=== PATIENT | female | born 1935 | race Caucasian/White ===

== ENCOUNTER 2018-01-09 23:53 | Emergency (ER) | payer MEDICARE ==
[2018-01-10] MEDS ORDERED: Labetalol IV* 5 MG/ML 20 ML VIAL IV PUSH ONE (00:39)
--- NOTE | 2018-01-10 00:59 | ED ---
Complex/Multi-Sys Presentation - HPI Summary HPI Summary: This is Michele Causey documenting for Dmitriy Og MD. This patient is a 68 year old F with a PMHx of HTN and DVT BIBA to [facility] with a chief complaint of blurry vision, subjective fever, redness of the face, and palpitations today 0:00 on 01/10/2018. Her symptoms woke her up from sleep, lasted a few seconds, and then resolved. Patient denies ROY, pain, numbness or tingling in arms or legs. The patient called life alert because she lives by herself and was worried about her condition. En route and in the ED room, the patients BP was high. She takes meds for her HTN and Coumadin for DVT. She last took her meds at 20:30 today. - History Of Current Complaint Chief Complaint: EDHypertension Time Seen by Provider: 01/10/18 00:28 Hx Obtained From: Patient Onset/Duration: Sudden Onset, Lasting Minutes - Woke her up form her sleepand lasted a few seconds, then resolved, Resolved Timing: Seconds - Symptoms woke her up from her sleep, lasted a few seconds, then resolved Severity Currently: None Associated Signs And Symptoms: Positive: Palpitations, Fever - subjective fever , Other - blurry vision; denies pain, denies numbness or tingling in arms or legs. Negative: Headache - Allergies/Home Medications Allergies/Adverse Reactions: Allergies Allergy/AdvReac Type Severity Reaction Status Date / Time MS Azithromycin Allergy Rash And Verified 08/23/14 12:36 [Azithromycin] Itching MS Cefaclor [From Ceclor] Allergy Rash And Verified 08/23/14 12:36 Itching MS Ciprofloxacin [From Cipro] Allergy Rash And Verified 08/23/14 12:36 Itching MS Levofloxacin Allergy Rash And Verified 08/23/14 12:36 [From Levaquin] Itching MS Nystatin [Nystatin] Allergy Rash And Verified 08/23/14 12:36 Itching MS Penicillins [PCN] Allergy Hives Verified 08/23/14 12:36 SURGA GEL Allergy Rash And Uncoded 08/23/14 12:36 Itching PMH/Surg Hx/FS Hx/Imm Hx Endocrine/Hematology History: Reports: Hx Anticoagulant Therapy Cardiovascular History: Reports: Hx Hypertension, Other Cardiovascular Problems/ Disorders - Occasional palpitations Denies: Hx Pacemaker/ICD GI History: Reports: Hx Diverticulosis, Hx Hiatal Hernia, Other GI Disorders - 2 abdominal surgeries in one day - partial colectomy History: Reports: Other Problems/Disorders - bladder infection, enlargement of urethra Musculoskeletal History: Reports: Hx Arthritis, Hx Back Problems, Hx Orthopedic Injury - knee injured as a teen, Hx Scoliosis Sensory History: Reports: Hx Contacts or Glasses Denies: Hx Hearing Aid Opthamlomology History: Reports: Hx Contacts or Glasses Psychiatric History: Reports: Hx Anxiety, Hx Panic Disorder - Surgical History Surgery Procedure, Year, and Place: urethra enlargement, partial colectomy, Tonsilectomy, D&C, cataract surgery Hx Anesthesia Reactions: No Infectious Disease History: No Infectious Disease History: Denies: Traveled Outside the [place] in Last 30 Days - Family History Known Family History: Positive: Cardiac Disease, Other - Cancer - Social History Alcohol Use: None Substance Use Type: Reports: None Smoking Status (MU): Never Smoked Tobacco Review of Systems Positive: Fever - subjective fever. Negative: Other - Denies pain Positive: Blurred Vision Positive: Other - Redness of the face Positive: Palpitations Negative: Other - Denies numbness or tingling in arms or legs Negative: Headache All Other Systems Reviewed And Are Negative: Yes Physical Exam - Summary Physical Exam Summary: VITAL SIGNS: Reviewed. GENERAL: Patient is a well-developed and nourished FEMALE who is lying comfortable in the stretcher. Patient is not in any acute respiratory distress. HEAD AND FACE: No signs of trauma. No ecchymosis, hematomas or skull depressions. No sinus tenderness. EYES: PERRLA, EOMI x 2, No injected conjunctiva, no nystagmus. EARS: Hearing grossly intact. Ear canals and tympanic membranes are within normal limits. MOUTH: Oropharynx within normal limits. NECK: Supple, trachea is midline, no adenopathy, no JVD, no carotid bruit, no c- spine tenderness, neck with full ROM. CHEST: Symmetric, no tenderness at palpation LUNGS: Clear to auscultation bilaterally. No wheezing or crackles. CVS: Regular rate and rhythm, S1 and S2 present, no murmurs or gallops appreciated. ABDOMEN: Soft, non-tender. No signs of distention. No rebound no guarding, and no masses palpated. Bowel sounds are normal. EXTREMITIES: FROM in all major joints, no edema, no cyanosis or clubbing. NEURO: Alert and oriented x 3. No acute neurological deficits. Speech is normal and follows commands. SKIN: Dry and warm Vital Signs On Initial Exam: Initial Vitals Temp Pulse Resp BP Pulse Ox 97.6 F 97 18 192/93 96 01/10/18 00:31 01/10/18 00:31 01/10/18 00:31 01/10/18 00:31 01/10/18 00:31 Diagnostics - Vital Signs Vital Signs Temp Pulse Resp BP Pulse Ox 01/10/18 00:31 97.6 F 97 18 192/93 96 - Laboratory Result Diagrams: 01/10/18 00:52 01/10/18 00:52 Lab Statement: Any lab studies that have been ordered have been reviewed, and results considered in the medical decision making process. - EKG 0056 Cardiac Rate: NL - 84 BPM EKG Rhythm: Sinus Rhythm EKG Interpretation: Normal axis. Normal interval. No ischemic changes Complex Multi-Symp Course/Dx Assessment/Plan: This patient is an 82 yo who has hx of HTN. She was watching TV when she felt a cadena in her head that lasted a few seconds. The patient pressed a panic button. Upon arrival to the ED, her BP was elevated. After feeling better in the ED, she was D/C home and was advised to increase her BP medication from 25 to 50. - Diagnoses Differential Diagnoses/HQI/PQRI: Other - hypertension Provider Diagnoses: Hypertension Discharge - Sign-Out/Discharge Documenting (check all that apply): Patient Departure - Discharge Plan Condition: Stable Disposition: HOME Patient Education Materials: Hypertension (ED) Referrals: Cynthia Gan MD [Primary Care Provider] - (Follow up with your primary care physician in 1-3 days.) Additional Instructions: I HIGHLY RECOMMEND THAT YOU INCREASE YOUR METOPROLOL FROM 25 TO 50 EVERY EVENING. CONTACT YOUR DOCTOR TO DISCUSS YOUR CONDITION IN 1-3 DAYS. RETURN TO THE EMERGENCY DEPARTMENT FOR CHANGING OR WORSENING SYMPTOMS.
[2018-01-10 01:00] LABS: ABS Basophils 0 10^3/ul (0-0.2); ABS Eosinophils 0 10^3/ul (0-0.6); ABS Monocytes 0.4 10^3/ul (0-0.8); ABS Neutrophils 2.8 10^3/ul (1.5-7.7); ABS Nucleated RBC 0 10^3/ul; Hematocrit 43 % (35-47); Hemoglobin 14.3 g/dl (12.0-16.0); Lymphocyte % 23.3 % (25-47); Mean Corpuscular HGB Conc 34 g/dl (31-36); Mean Corpuscular Hemoglobin 32 pg (27-31); Mean Corpuscular Volume 95 fL (80-97); Mean Platelet Volume 7.9 um3 (7.4-10.4); Nucleated Red Blood Cells % 0.1; Platelet Count 123 10^3/ul (150-450); Red Blood Count 4.52 10^6/ul (4.00-5.40); Red Cell Distribution Width 14 % (10.5-15); White Blood Count 4.2 10^3/ul (3.5-10.8)
[2018-01-10 01:09] LABS: INR 2.1 (0.77-1.02)
[2018-01-10 01:21] LABS: EGFR Non-African American 82.4 (>60)
[2018-01-10] MEDS: LORazepam INJ* 2 MG/ML 1 ML VIAL IV PUSH ONE ×2 (02:38→02:39)
[2018-01-10] MEDS ORDERED: Metoprolol Tartrate TAB* 25 MG PO ONE (02:41)
[2018-01-10 02:56] VITALS: BP 167/88
== END 2018-01-10 02:55 | disposition home or self-care (01) ==
LOC: ED 23:53
DX: I10 Essential (primary) hypertension (principal); H53.8 Other visual disturbances; R50.9 Fever, unspecified; R00.2 Palpitations; Z79.01 Long term (current) use of anticoagulants
CPT/HCPCS: 36415; 80053; 83735; 84484; 85025; 85610; 85730; 93005; 96374; 96375; 99282; J2060

== ENCOUNTER 2018-01-27 04:39 | Inpatient (IN) | payer MEDICARE ==
--- NOTE | 2018-01-27 04:58 | ED ---
Neurological HPI - HPI Summary HPI Summary: This is scribe, Shaunna Arzola, documenting for attending Dr. Omar MD. An 82 y/o F BIBA presents to ED with c/o extremity weakness onset tonight CLINICAL LIAISON and worsening. Pt lives alone, she pushed her emergency button. Pt ambulates at home with a walker. Pt had a recent medication change, is taking Zoloft, and her HTN medication was doubled a few weeks ago. Associated sx: stress ROY onset en route. Pt denies generalized weakness and pain, SOB, nausea, urinary sx. She states drinking more water recently due to the dry mouth side effect. PMHx: anxiety. She is also on Coumadin. I, Dr. Nelson, personally performed the services described in this documentation as scribed in my presence and it is both accurate and complete. - History of Current Complaint Chief Complaint: EDWeakness Stated Complaint: WEAKNESS Time Seen by Provider: 01/27/18 04:43 Hx Obtained From: Patient, Family/Washing Machine Operator - son Onset/Duration: Still Present Timing: Constant Onset Severity: Mild Current Severity: Moderate Pain Intensity: 0 Pain Scale Used: 0-10 Numeric Associated Signs and Symptoms: Positive: Headache, Change in Medication. Negative: Pain, Nausea/Vomiting, Shortness of Breath - Allergy/Home Medications Allergies/Adverse Reactions: Allergies Allergy/AdvReac Type Severity Reaction Status Date / Time azithromycin Allergy Rash And Verified 01/27/18 05:20 Itching cefaclor [From Ceclor] Allergy Rash And Verified 01/27/18 05:20 Itching ciprofloxacin [From Cipro] Allergy Rash And Verified 01/27/18 05:20 Itching levofloxacin [From Levaquin] Allergy Rash And Verified 01/27/18 05:20 Itching nystatin Allergy Rash And Verified 01/27/18 05:20 Itching Penicillins Allergy Hives Verified 01/27/18 05:20 tomato Allergy See Comment Verified 01/27/18 04:44 SURGA GEL Allergy Rash And Uncoded 01/27/18 04:43 Itching PMH/Surg Hx/FS Hx/Imm Hx Previously Healthy: No Endocrine/Hematology History: Reports: Hx Anticoagulant Therapy Cardiovascular History: Reports: Hx Hypertension, Other Cardiovascular Problems/ Disorders - Occasional palpitations Denies: Hx Pacemaker/ICD GI History: Reports: Hx Diverticulosis, Hx Hiatal Hernia, Other GI Disorders - 2 abdominal surgeries in one day - partial colectomy History: Reports: Other Problems/Disorders - bladder infection, enlargement of urethra Musculoskeletal History: Reports: Hx Arthritis, Hx Back Problems, Hx Orthopedic Injury - knee injured as a teen, Hx Scoliosis Sensory History: Reports: Hx Contacts or Glasses Denies: Hx Hearing Aid Opthamlomology History: Reports: Hx Contacts or Glasses Psychiatric History: Reports: Hx Anxiety, Hx Panic Disorder - Surgical History Surgery Procedure, Year, and Place: urethra enlargement, partial colectomy, Tonsilectomy, D&C, cataract surgery Hx Anesthesia Reactions: No Infectious Disease History: No Infectious Disease History: Denies: Traveled Outside the [place] in Last 30 Days - Family History Known Family History: Positive: Cardiac Disease, Other - Cancer - Social History Occupation: Retired Lives: Alone Alcohol Use: None Substance Use Type: Reports: None Smoking Status (MU): Never Smoked Tobacco Review of Systems Negative: Shortness Of Breath Negative: Nausea Negative: other - neg: urinary sx Negative: Other - neg: generalized pain Positive: Headache, Weakness - pos: upper and lower extremities; neg: generalized All Other Systems Reviewed And Are Negative: Yes Physical Exam - Summary Physical Exam Summary: Appearance: Well-appearing, Well-nourished, lying in bed comfortably Skin: Warm, dry, no obvious rash Eyes: sclera anicteric, no conjunctival pallor ENT: mucous membranes moist, pharynx appears normal Neck: Supple, nontender Respiratory: Clear to auscultation, no signs of respiratory distress Cardiovascular: Normal S1, S2. No murmurs. Normal distal pulses in tibial and radial bilaterally. Abdomen: Soft, nontender, normal active bowel sounds present Musculoskeletal: Normal, Strength/ROM Intact Neurological: A&Ox3, awake and alert, mentation is normal, speech is fluent and appropriate Psychiatric: affect is normal, does not appear anxious or depressed Triage Information Reviewed: Yes Vital Signs On Initial Exam: Initial Vitals Temp Pulse Resp BP Pulse Ox 97.8 F 110 18 204/114 94 01/27/18 04:41 01/27/18 04:41 01/27/18 04:41 01/27/18 04:41 01/27/18 04:41 Vital Signs Reviewed: Yes Diagnostics - Vital Signs Vital Signs Temp Pulse Resp BP Pulse Ox 01/27/18 04:41 97.8 F 110 18 204/114 94 - Laboratory Result Diagrams: 01/31/18 05:19 01/31/18 05:19 Lab Statement: Any lab studies that have been ordered have been reviewed, and results considered in the medical decision making process. - Additional Comments Diagnostic Additional Comments: EKG at 0523: NSR at 66 BPM, P waves, QRS complex, and T waves are within normal limits, T waves and intervals are normal, no ischemic changes. This is a normal EKG. Re-Evaluation - Re-Evaluation 1 Re-Evaluation Time: 05:51 Change: Unchanged Comment: Discussing results with pt and son. Pt voiced understanding. Course/Dx - Diagnoses Provider Diagnoses: Hyponatremia - Physician Notifications Discussed Care Of Patient With: Lonnie Oliva - hospitalist Time Discussed With Above Provider: 04:00 Instructed by Provider To: Admit As Inpatient Discharge - Sign-Out/Discharge Documenting (check all that apply): Patient Departure - ADM - Discharge Plan Condition: Stable Disposition: ADMITTED TO [facility] - Billing Disposition and Condition Condition: STABLE Disposition: Admitted to [facility]
[2018-01-27 05:21] LABS: ABS Basophils 0 10^3/ul (0-0.2); ABS Eosinophils 0 10^3/ul (0-0.6); ABS Lymphocytes 0.9 10^3/ul (1.0-4.8); ABS Monocytes 0.5 10^3/ul (0-0.8); ABS Neutrophils 3.3 10^3/ul (1.5-7.7); ABS Nucleated RBC 0 10^3/ul; Eosinophil % 0.3 % (0-6); Hematocrit 40 % (35-47); Hemoglobin 13.9 g/dl (12.0-16.0); Lymphocyte % 19.3 % (25-47); Mean Corpuscular HGB Conc 35 g/dl (31-36); Mean Corpuscular Hemoglobin 32 pg (27-31); Mean Corpuscular Volume 93 fL (80-97); Mean Platelet Volume 7.6 um3 (7.4-10.4); Nucleated Red Blood Cells % 0.1; Platelet Count 146 10^3/ul (150-450); Red Blood Count 4.34 10^6/ul (4.00-5.40); Red Cell Distribution Width 13 % (10.5-15); White Blood Count 4.7 10^3/ul (3.5-10.8)
[2018-01-27 05:40] LABS: EGFR Non-African American 120.3 (>60)
[2018-01-27] MEDS ORDERED: NS 0.9% 1000 ML* 1,000 ML IV ONE (05:46)
[2018-01-27 06:40] LABS: Urine Appearance Clear; Urine Blood 1+ (Negative); Urine Color Straw; Urine Ketones Negative (Negative); Urine Protein Negative (Negative); Urine Red Blood Cell Trace(0-2/hpf) (Absent); Urine Specific Gravity 1.003 (1.010-1.030); Urine Urobilinogen Negative (Negative); Urine White Blood Cell Trace(0-5/hpf) (Absent)
[2018-01-27 07:10] LABS: INR 1.99 (0.77-1.02)
[2018-01-27] MEDS ORDERED: Acetaminophen TAB* 325 MG PO PRN (08:29)
[2018-01-27] MEDS: Losartan TAB* 25 MG PO SCH (10:33)
[2018-01-27] MEDS: Polyethylene Glycol 3350* 17 GM PACKET PO SCH (10:33)
[2018-01-27] MEDS: Cholecalciferol TAB* 400 UNIT PO SCH (10:33)
[2018-01-27 10:57] LABS: EGFR Non-African American 132.7 (>60)
[2018-01-27] MEDS: Metoprolol Succinate XL TAB* 25 MG PO SCH (11:04)
--- NOTE | 2018-01-27 16:30 | HP ---
CC: Dr. Gan HISTORY AND PHYSICAL: DATE OF ADMISSION: 01/27/18 TIME OF EVALUATION: 8:20 a.m. PRIMARY CARE PROVIDER: Dr. Gan CHIEF COMPLAINT: "I am weak." HISTORY OF PRESENT ILLNESS: Mrs. Segal is an 82-year-old lady with a past medical history of hypertension, lower extremity DVT, chronic low back pain with history of L4 compression fracture, ventral hernia, who presents to the emergency room with complaints of weakness. The patient states that she is being under a lot of stress since the beginning of this year. She states that she did not keep up-to-date on her home maintenance and she has had multiple issues including her furnace, her AC and this has been a cause of great stress for her. She states her blood pressure has been in control for a long time and she saw her PCP, who increased her metoprolol and losartan. She states that she was not feeling well with those medication changes and later on sertraline was added to her regimen and she states she felt even worse. She stated for the past week, she felt that her arms and legs were getting weaker, she was having a hard time moving around with her walker. She states that her gait is not easy at baseline, but was even harder. She states that she did not have an appetite, but she was trying to keep up with her p.o. fluid and solid intake. She denies fever, chills, nausea, vomiting, diarrhea, urinary complaints, chest pain, cough, or shortness of breath. PAST MEDICAL HISTORY: 1. Hypertension. 2. Lower extremity DVT, on warfarin. 3. Chronic back pain with history of L4 compression fractures. 4. Chronic constipation. 5. Ventral hernia. MEDICATION LIST: 1. Cholecalciferol 400 units p.o. daily. 2. Colace 200 mg p.o. bedtime. 3. Losartan 25 mg p.o. daily. 4. Metoprolol succinate 25 mg p.o. bedtime. 5. MiraLAX 17 g p.o. daily. 6. Warfarin 5 mg p.o. bedtime. ALLERGIES: The patient has reactions to AZITHROMYCIN, CEFACLOR, CIPROFLOXACIN, LEVOFLOXACIN, NYSTATIN, PENICILLIN, TOMATOES and SURGA GEL. FAMILY HISTORY: Reviewed and noncontributory. SOCIAL HISTORY: No history of tobacco, alcohol, or drug use. She is , has 3 children. Surrogate decision maker is her son, Lisandra Segal, phone number is [phone]. REVIEW OF SYSTEMS: A 14-point review of systems was performed and all the pertinent negative and positive findings are in the HPI. PHYSICAL EXAMINATION GENERAL: The patient is a pleasant elderly lady, lying in ED stretcher, in no acute distress. VITAL SIGNS: Temperature 97.8, heart rate 74, respiratory rate 20, oxygen saturation 96% on room air, blood pressure 163/90. HEENT: Pupils are equal. Moist mucous membranes. Hearing aids in place. CHEST: Breath sounds present bilaterally with no added sounds. CVS: Normal S1, S2. Regular rate and rhythm. ABDOMEN: Soft. Bowel sounds are present. EXTREMITIES: No edema. NEUROLOGIC: She is alert and oriented x3. Able to move all 4 extremities. Hard of hearing. DIAGNOSTIC STUDIES/LAB DATA: The patient had a CBC that showed WBC of 4.7, hemoglobin of 13.9, hematocrit of 40, platelets of 146 with 70% neutrophils. INR is 1.99. Chemistry showed a sodium of 122, potassium of 4.1, chloride of 92 , bicarb of 23, BUN of 12, creatinine of 0.49, glucose of 103, calcium of 9.1. LFTs are normal. TSH is 5.2. Urinalysis showed 1+ blood only. EKG done on 01/27/18 at 5:23 a.m. showed normal sinus rhythm at 66 beats per minute with no ST-T changes. There is no significant change when compared to her prior EKG from December 2017. ASSESSMENT AND PLAN: Mrs. Segal is an 82-year-old lady with a past medical history of hypertension, lower extremity deep vein thrombosis, on warfarin, chronic back pain, who presents to the emergency room with complaints of weakness, found to have hyponatremia. 1. Hyponatremia. Suspect this is likely syndrome of inappropriate antidiuretic hormone secretion secondary to sertraline use. The patient's sodium was normal at 135 by the end of December and she has been on losartan and metoprolol for some time. She appears to be euvolemic at this time. I am going to check her serum and urine osmolality, urine sodium and creatinine. For now, I am going to discontinue her sertraline and put her on a regular diet. If this is not enough to bring her sodium level up, she may require a fluid restriction and sodium tablets. 2. Hypertension. Appears to be poorly controlled. For now, I am going to continue her metoprolol and losartan and continue to monitor blood pressure. We may need to increase one of her agents. 3. History of lower extremity deep vein thrombosis. The patient's INR is 1.99 and we are going to continue her warfarin. 4. Chronic constipation. We will continue MiraLAX and Colace. 5. DVT prophylaxis. The patient is already anticoagulated with warfarin. The patient has a score of 3 on the DVT Prophylaxis Risk Assessment and Guide and she is already anticoagulated with warfarin. 6. Code status: The patient wishes to be a do not resuscitate and a MOLST form was filled out. TIME SPENT: Approximately 50 minutes were spent with the patient interview, medical records review, physical examination to complete the admission, more than half of this time was spent [id number] with the patient and coordination of care. [id number]/CPS #: [id number] FRANSICO
[2018-01-27] MEDS: Docusate CAP* 100 MG PO SCH (20:26)
[2018-01-27] MEDS: Warfarin TAB(*) 5 MG PO SCH (20:27)
[2018-01-28 05:57] LABS: ABS Basophils 0 10^3/ul (0-0.2); ABS Eosinophils 0 10^3/ul (0-0.6); ABS Monocytes 0.7 10^3/ul (0-0.8); ABS Nucleated RBC 0 10^3/ul; Eosinophil % 0.3 % (0-6); Hematocrit 42 % (35-47); Hemoglobin 14.5 g/dl (12.0-16.0); Lymphocyte % 15.3 % (25-47); Mean Corpuscular HGB Conc 35 g/dl (31-36); Mean Corpuscular Hemoglobin 32 pg (27-31); Mean Corpuscular Volume 93 fL (80-97); Mean Platelet Volume 7.6 um3 (7.4-10.4); Nucleated Red Blood Cells % 0.2; Platelet Count 159 10^3/ul (150-450); Red Blood Count 4.52 10^6/ul (4.00-5.40); Red Cell Distribution Width 13 % (10.5-15); White Blood Count 6.8 10^3/ul (3.5-10.8)
[2018-01-28 06:11] LABS: EGFR Non-African American 136.2 (>60)
[2018-01-28] MEDS: Polyethylene Glycol 3350* 17 GM PACKET PO SCH (08:00)
[2018-01-28] MEDS: Metoprolol Succinate XL TAB* 25 MG PO SCH (08:01)
[2018-01-28] MEDS: Losartan TAB* 25 MG PO SCH (08:01)
[2018-01-28] MEDS: Cholecalciferol TAB* 400 UNIT PO SCH (08:01)
[2018-01-28] MEDS ORDERED: LORazepam TAB(*) 0.5 MG PO PRN (11:44)
[2018-01-28] MEDS: NS 0.9% 1000 ML* 1,000 ML IV SCH ×2 (12:15→22:31)
--- NOTE | 2018-01-28 15:07 | PN ---
Subjective Date of Service: 01/28/18 Interval History: "I don't know how I feel" "I've been hauled around so much, I just don't know" Has not been out of bed, still feels quite weak Extremely anxious, has no support system Lives alone in [place] with a house it seems she cannot keep up with Objective Active Medications: Acetaminophen (Tylenol Tab*) 650 mg PO Q6H PRN PRN Reason: pain/fever Cholecalciferol (Vitamin D Tab*) 400 unit PO DAILY [facility] Last Admin: 01/28/18 08:01 Dose: 400 unit Docusate Sodium (Colace Cap*) 200 mg PO BEDTIME [facility] Last Admin: 01/27/18 20:26 Dose: 200 mg Sodium Chloride (Ns 0.9% 1000 Ml*) 1,000 mls @ 100 mls/hr IV PER RATE [facility] Last Admin: 01/28/18 12:15 Dose: 100 mls/hr Lorazepam (Ativan Tab(*)) 0.25 mg PO Q4H PRN PRN Reason: ANXIETY Last Admin: 01/28/18 12:09 Dose: 0.25 mg Losartan Potassium (Cozaar Tab*) 25 mg PO DAILY [facility] Last Admin: 01/28/18 08:01 Dose: 25 mg Metoprolol Succinate (Toprol Xl Tab*) 25 mg PO DAILY [facility] Last Admin: 01/28/18 08:01 Dose: 25 mg Pharmacy Profile Note (Coumadin Daily Reminder*) 0 note FOLLOW UP 1700 [facility] Last Admin: 01/27/18 17:27 Dose: 1 note Polyethylene Glycol/Electrolytes (Miralax*) 17 gm PO DAILY [facility] Last Admin: 01/28/18 08:00 Dose: 17 gm Warfarin Sodium (Coumadin Tab(*)) 5 mg PO BEDTIME [facility]; Protocol Last Admin: 01/27/18 20:27 Dose: 5 mg Vital Signs - 8 hr 01/28/18 01/28/18 01/28/18 07:43 08:00 11:41 Temperature 97.8 F 98.0 F Pulse Rate 76 78 Respiratory 16 20 16 Rate Blood Pressure 175/79 185/84 (mmHg) O2 Sat by Pulse 97 97 Oximetry 01/28/18 12:09 Temperature Pulse Rate Respiratory 18 Rate Blood Pressure (mmHg) O2 Sat by Pulse Oximetry Oxygen Devices in Use Now: None Appearance: tired appearing, gets anxious when talking about her symptoms Eyes: No Scleral Icterus Ears/Nose/Mouth/Throat: NL Teeth, Lips, Gums Neck: NL Appearance and Movements; NL JVP Respiratory: Symmetrical Chest Expansion and Respiratory Effort, Clear to Auscultation Cardiovascular: NL Sounds; No Murmurs; No JVD, RRR Abdominal: NL Sounds; No Tenderness; No Distention, - Lymphatic: No Cervical Adenopathy Extremities: No Edema Skin: No Rash or Ulcers Neurological: Alert and Oriented x 3 Result Diagrams: 01/28/18 05:24 01/28/18 05:24 Microbiology and Other Data: Microbiology 01/27/18 06:29 Urine Culture - Final Urine Assess/Plan/Problems-Billing Assessment: 82 year old female with history of HTN, DVT on warfarin, compression fracture admitted with weakness and found to have hyponatremia 3 weeks after starting sertraline. - Patient Problems (1) Hyponatremia Current Visit: Yes Status: Acute Code(s): E87.1 - HYPO-OSMOLALITY AND HYPONATREMIA SNOMED Code(s): 61553739 Comment: mildly improved off sertraline may be some component of "tea and toast" diet but she does say she cooks vegetables may be contributing to her symptoms of malaise and weakness will try to improve her sodium level and see if her vague symptoms improve try fluid restriction and slow normal saline today (2) Panic anxiety syndrome Current Visit: Yes Status: Acute Code(s): F41.0 - PANIC DISORDER [EPISODIC PAROXYSMAL ANXIETY] SNOMED Code(s): 684419616 Comment: she has no support and an SSRI was a good choice for her, as she describes panic attacks frequently unfortunately it seems SSRIs are not a good fit for her given hyponatremia I'd like to avoid benzodiazepines in her age, but since she failed SSRI therapy , I'll try a very low dose benzo (3) Compression fracture of L4 lumbar vertebra Current Visit: No Status: Acute Priority: High Onset Date: 04/28/15 Code (s): S32.040A - WEDGE COMPRESSION FRACTURE OF FOURTH LUMBAR VERTEBRA, INIT SNOMED Code(s): 924938611 (4) Hx of deep venous thrombosis Current Visit: No Status: Chronic Priority: Medium Code(s): Z86.718 - PERSONAL HISTORY OF OTHER VENOUS THROMBOSIS AND EMBOLISM SNOMED Code(s): 476087068 Comment: INR was 1.99 yesterday; recheck tomorrow
[2018-01-28] MEDS: Docusate CAP* 100 MG PO SCH (20:39)
[2018-01-28] MEDS: Warfarin TAB(*) 5 MG PO SCH (20:39)
[2018-01-29 05:41] LABS: ABS Basophils 0 10^3/ul (0-0.2); ABS Eosinophils 0 10^3/ul (0-0.6); ABS Lymphocytes 1.2 10^3/ul (1.0-4.8); ABS Monocytes 0.8 10^3/ul (0-0.8); ABS Neutrophils 4.5 10^3/ul (1.5-7.7); ABS Nucleated RBC 0 10^3/ul; Eosinophil % 0.7 % (0-6); Hematocrit 40 % (35-47); Hemoglobin 13.7 g/dl (12.0-16.0); Mean Corpuscular HGB Conc 34 g/dl (31-36); Mean Corpuscular Hemoglobin 32 pg (27-31); Mean Corpuscular Volume 92 fL (80-97); Mean Platelet Volume 7.4 um3 (7.4-10.4); Nucleated Red Blood Cells % 0.1; Platelet Count 154 10^3/ul (150-450); Red Blood Count 4.31 10^6/ul (4.00-5.40); Red Cell Distribution Width 13 % (10.5-15); White Blood Count 6.6 10^3/ul (3.5-10.8)
[2018-01-29 05:45] LABS: INR 3.23 (0.77-1.02)
[2018-01-29 05:57] LABS: EGFR Non-African American 139.9 (>60)
[2018-01-29] MEDS: Losartan TAB* 25 MG PO SCH (09:37)
[2018-01-29] MEDS: Cholecalciferol TAB* 400 UNIT PO SCH (09:37)
[2018-01-29] MEDS: Polyethylene Glycol 3350* 17 GM PACKET PO SCH (09:37)
[2018-01-29] MEDS: Metoprolol Succinate XL TAB* 25 MG PO SCH (09:37)
[2018-01-29] MEDS: NS 0.9% 1000 ML* 1,000 ML IV SCH ×2 (10:23→21:41)
--- NOTE | 2018-01-29 12:27 | PN ---
Subjective Date of Service: 01/29/18 Interval History: Pt reports she feels a "little better" since coming to the hospital but is unable to tell me exactly why. She reports her left knee hurts from "being moved around" stating she as arthritis in her left knee as well as a previous injury to that knee when she was a young women and has had problems since then - she states she cannot bear weight on it now. She denies any specific trauma. Reports it is recommended she have a knee replacement but she has refused d/t to her age. She reports she took a dose of xana yesterday afternoon and was able to sleep for the first time since coming in. She does report she had vivid dreams but denies hallucinations. She is concerned because she did have hallucinations with opioids in the past. Currently she feels that her anxiety is under control and will think about trying the low dose xanax in the future but wants to see how she feels. Objective Active Medications: Acetaminophen (Tylenol Tab*) 650 mg PO Q6H PRN PRN Reason: pain/fever Cholecalciferol (Vitamin D Tab*) 400 unit PO DAILY [facility] Last Admin: 01/29/18 09:37 Dose: 400 unit Docusate Sodium (Colace Cap*) 200 mg PO BEDTIME [facility] Last Admin: 01/28/18 20:39 Dose: 200 mg Sodium Chloride (Ns 0.9% 1000 Ml*) 1,000 mls @ 100 mls/hr IV PER RATE [facility] Last Admin: 01/29/18 10:23 Dose: 100 mls/hr Lorazepam (Ativan Tab(*)) 0.25 mg PO Q4H PRN PRN Reason: ANXIETY Last Admin: 01/28/18 12:09 Dose: 0.25 mg Losartan Potassium (Cozaar Tab*) 25 mg PO DAILY [facility] Last Admin: 01/29/18 09:37 Dose: 25 mg Metoprolol Succinate (Toprol Xl Tab*) 25 mg PO DAILY [facility] Last Admin: 01/29/18 09:37 Dose: 25 mg Pharmacy Profile Note (Coumadin Daily Reminder*) 0 note FOLLOW UP 1700 [facility] Last Admin: 01/28/18 17:14 Dose: 1 note Polyethylene Glycol/Electrolytes (Miralax*) 17 gm PO DAILY [facility] Last Admin: 01/29/18 09:37 Dose: 17 gm Warfarin Sodium (Coumadin Tab(*)) 5 mg PO BEDTIME [facility]; Protocol Last Admin: 01/28/18 20:39 Dose: 5 mg Vital Signs - 8 hr 01/29/18 01/29/18 01/29/18 07:52 08:00 11:17 Temperature 97.2 F 97.8 F Pulse Rate 77 70 Respiratory 16 16 20 Rate Blood Pressure 162/76 159/70 (mmHg) O2 Sat by Pulse 97 97 Oximetry Oxygen Devices in Use Now: None Appearance: 82 yo frail female laying in bed in NAD, A+O x3 Eyes: No Scleral Icterus, PERRLA Ears/Nose/Mouth/Throat: NL Teeth, Lips, Gums, Mucous Membranes Moist Neck: NL Appearance and Movements; NL JVP Respiratory: Symmetrical Chest Expansion and Respiratory Effort, Clear to Auscultation Cardiovascular: NL Sounds; No Murmurs; No JVD, RRR, No Edema Abdominal: NL Sounds; No Tenderness; No Distention Extremities: No Edema, No Clubbing, Cyanosis, - - good ROM in left knee with good strength - no illicited pain, no erythema, ecchymosis or swelling noted. Skin: No Rash or Ulcers, No Nodules or Sclerosis Neurological: Alert and Oriented x 3, NL Muscle Strength and Tone Lines/Tubes/Other Access: Clean, Dry and Intact Peripheral IV Nutrition: Taking PO's Result Diagrams: 01/29/18 05:33 01/29/18 05:33 Microbiology and Other Data: Microbiology 01/27/18 06:29 Urine Culture - Final Urine Assess/Plan/Problems-Billing Assessment: 82 year old female with history of HTN, DVT on warfarin, compression fracture admitted with weakness and found to have hyponatremia 3 weeks after starting sertraline. - Patient Problems (1) Hyponatremia Comment: Trnding up off sertraline may be some component of "tea and toast" diet but she does say she cooks vegetables may be contributing to her symptoms of malaise and weakness Sodium is slowly improving... will continue fluid restriction and slow normal saline. will continue to try to improve her sodium level and see if her vague symptoms improve (2) Panic anxiety syndrome Comment: she has no support and an SSRI was a good choice for her, as she describes panic attacks frequently. unfortunately it seems SSRIs are not a good fit for her given hyponatremia - she was started on low dose benzodiazepines this hospitalization ... there is concern given her age, but since she failed SSRI therapy, will continue low dose benzo & monitor (3) Left knee pain Comment: - Denies trauma stating this is arthritis and old injury - not uncommon for her to have discomfort however she will not bear weight on the extremity. Plan to obtain xray. Appreciate PT eval - recommendation for subacute at this point - pt currently is not ambulating. It is hard to know at this time if this will easily pass & improve. Would like PT to continue to see pt daily. Will change PRN APAP to JAISON to see if this improves pain and mobility (4) Compression fracture of L4 lumbar vertebra Comment: - supportive tx (5) Hx of deep venous thrombosis Comment: INR 3.23 - lower dose tonight to 3 mg Status and Disposition: inpatient hyponatremia and now lfet knee pain not ambulating - may require subacute
--- NOTE | 2018-01-29 14:50 | RAD ---
HISTORY: Left knee pain - refusing to bear weight COMPARISONS: April 28, 2015 VIEWS: 4, Frontal, lateral, axial, and oblique views of the left knee FINDINGS: BONE DENSITY: There is diffuse osteopenia. BONES: There is no displaced fracture. JOINTS: There is moderate to advanced tricompartmental osteoarthritis most pronounced within the patellofemoral compartment. There is no suprapatellar joint effusion or lipohemarthrosis. ALIGNMENT: There is no dislocation. SOFT TISSUES: There is peripheral arterial calcification. OTHER FINDINGS: None. IMPRESSION: 1. OSTEOPENIA. 2. OSTEOARTHRITIS. 3. PERIPHERAL ARTERIAL DISEASE. 4. NO ACUTE OSSEOUS INJURY. THE DEGREE OF OSTEOPENIA MAY MAKE A NONDISPLACED FRACTURE RADIOGRAPHICALLY OCCULT. IF SYMPTOMS PERSIST, RECOMMEND REPEAT IMAGING.
[2018-01-29] MEDS: Acetaminophen TAB* 325 MG PO SCH ×2 (15:16→21:34)
[2018-01-29 19:47] LABS: EGFR Non-African American 114.9 (>60)
[2018-01-29] MEDS ORDERED: Warfarin TAB(*) 2.5 MG PO SCH (21:00)
[2018-01-29] MEDS ORDERED: Warfarin TAB(*) 3 MG PO SCH (21:00)
[2018-01-29] MEDS: Docusate CAP* 100 MG PO SCH (21:35)
[2018-01-30] MEDS: Acetaminophen TAB* 325 MG PO SCH ×3 (05:40→21:43)
[2018-01-30 06:05] LABS: ABS Basophils 0.1 10^3/ul (0-0.2); ABS Eosinophils 0 10^3/ul (0-0.6); ABS Lymphocytes 0.9 10^3/ul (1.0-4.8); ABS Monocytes 0.6 10^3/ul (0-0.8); ABS Neutrophils 3.6 10^3/ul (1.5-7.7); ABS Nucleated RBC 0 10^3/ul; Eosinophil % 0.9 % (0-6); Hematocrit 40 % (35-47); Hemoglobin 13.6 g/dl (12.0-16.0); Lymphocyte % 17.4 % (25-47); Mean Corpuscular HGB Conc 34 g/dl (31-36); Mean Corpuscular Hemoglobin 32 pg (27-31); Mean Corpuscular Volume 94 fL (80-97); Mean Platelet Volume 7.7 um3 (7.4-10.4); Nucleated Red Blood Cells % 0.1; Platelet Count 156 10^3/ul (150-450); Red Blood Count 4.28 10^6/ul (4.00-5.40); Red Cell Distribution Width 13 % (10.5-15); White Blood Count 5.2 10^3/ul (3.5-10.8)
[2018-01-30 06:11] LABS: INR 3.94 (0.77-1.02)
[2018-01-30 06:25] LABS: EGFR Non-African American 152.1 (>60)
--- NOTE | 2018-01-30 08:01 | PN ---
Subjective Date of Service: 01/30/18 Interval History: . pt reports she feels better today - she has less knee pain and got OOB with PT. She reports though that she is "very weak". She denies dizziness when standing. Reports good appetite. No fever or chills. Objective Active Medications: Acetaminophen (Tylenol Tab*) 975 mg PO Q8H [facility] Last Admin: 01/30/18 05:40 Dose: 975 mg Cholecalciferol (Vitamin D Tab*) 400 unit PO DAILY [facility] Last Admin: 01/29/18 09:37 Dose: 400 unit Docusate Sodium (Colace Cap*) 200 mg PO BEDTIME [facility] Last Admin: 01/29/18 21:35 Dose: 200 mg Sodium Chloride (Ns 0.9% 1000 Ml*) 1,000 mls @ 100 mls/hr IV PER RATE [facility] Last Admin: 01/29/18 21:41 Dose: 100 mls/hr Lorazepam (Ativan Tab(*)) 0.25 mg PO Q4H PRN PRN Reason: ANXIETY Last Admin: 01/28/18 12:09 Dose: 0.25 mg Losartan Potassium (Cozaar Tab*) 25 mg PO DAILY [facility] Last Admin: 01/29/18 09:37 Dose: 25 mg Metoprolol Succinate (Toprol Xl Tab*) 25 mg PO DAILY [facility] Last Admin: 01/29/18 09:37 Dose: 25 mg Pharmacy Profile Note (Coumadin Daily Reminder*) 0 note FOLLOW UP 1700 [facility] Last Admin: 01/29/18 21:53 Dose: Not Given Polyethylene Glycol/Electrolytes (Miralax*) 17 gm PO DAILY [facility] Last Admin: 01/29/18 09:37 Dose: 17 gm Vital Signs - 8 hr 01/30/18 03:23 Temperature 97.2 F Pulse Rate 73 Respiratory 18 Rate Blood Pressure 151/74 (mmHg) O2 Sat by Pulse 98 Oximetry Oxygen Devices in Use Now: None Appearance: frail elderly 82 yo A+O x3 in NAD Eyes: No Scleral Icterus, PERRLA Ears/Nose/Mouth/Throat: NL Teeth, Lips, Gums, Mucous Membranes Moist Neck: NL Appearance and Movements; NL JVP Respiratory: Symmetrical Chest Expansion and Respiratory Effort, Clear to Auscultation Cardiovascular: NL Sounds; No Murmurs; No JVD, RRR, No Edema Abdominal: NL Sounds; No Tenderness; No Distention Extremities: No Edema, No Clubbing, Cyanosis, - - good ROM in legs/knee b/l - no noted pain, erythema or edema Skin: No Rash or Ulcers Neurological: Alert and Oriented x 3, NL Sensation Lines/Tubes/Other Access: Clean, Dry and Intact Peripheral IV Nutrition: Taking PO's Result Diagrams: 01/30/18 05:35 01/30/18 05:35 Microbiology and Other Data: Microbiology 01/27/18 06:29 Urine Culture - Final Urine Assess/Plan/Problems-Billing Assessment: 82 year old female with history of HTN, DVT on warfarin, compression fracture admitted with weakness and found to have hyponatremia 3 weeks after starting sertraline. - Patient Problems (1) Hyponatremia Comment: Resolving off sertraline may be some component of "tea and toast" diet but she does say she cooks vegetables may be contributing to her symptoms of malaise and weakness - which are improving DC fluid restriction and IVF, repeat Na+ in am (2) Panic anxiety syndrome Comment: she has little support (son does live close) and an SSRI was a good choice for her, as she describes panic attacks frequently. unfortunately it seems SSRIs are not a good fit for her given hyponatremia - she was started on low dose benzodiazepines this hospitalization ... there is concern given her age , but since she failed SSRI therapy, will continue low dose benzo & monitor - so far has tried one dose - she reported vivid dreams and is scared that she may hallucinate and hasnt tried it again. She reports her anxiety is controlled at this time - she will need f/u with PCP (3) Left knee pain Comment: - Denies trauma stating this is arthritis and old injury - not uncommon for her to have discomfort however she will not bear weight on the extremity. Xray obtained yesterday showing no acute process but does have significant osteoarthritis - per radiologist if not improving recommends CT scan. Pt improved today with PT and ambulation - hold off on CT imaging. Appreciate PT eval - recommendation for subacute yesterday - will await todays evaulation. It is hard to know at this time but she does have generalized weakness may require subacute. Continue JAISON APAP started on 01/29 (4) Compression fracture of L4 lumbar vertebra Comment: - supportive tx (5) Hx of deep venous thrombosis Comment: INR 3.9 - hold coumadin and repeat INR in am (6) DVT prophylaxis Comment: see above (7) DNR (do not resuscitate) Status and Disposition: inpatient hyponatremia and now generalized weakness may require subacute. Update son Lisandra today he agrees with subacute of needed.
[2018-01-30] MEDS: NS 0.9% 1000 ML* 1,000 ML IV SCH (08:18)
[2018-01-30] MEDS: Polyethylene Glycol 3350* 17 GM PACKET PO SCH (08:20)
[2018-01-30] MEDS: Cholecalciferol TAB* 400 UNIT PO SCH (08:20)
[2018-01-30] MEDS: Losartan TAB* 25 MG PO SCH (08:20)
[2018-01-30] MEDS: Metoprolol Succinate XL TAB* 25 MG PO SCH (08:20)
[2018-01-30] MEDS ORDERED: Warfarin TAB(*) 5 MG PO SCH (21:00)
[2018-01-30] MEDS: Docusate CAP* 100 MG PO SCH (21:42)
[2018-01-31 05:34] LABS: ABS Basophils 0 10^3/ul (0-0.2); ABS Eosinophils 0 10^3/ul (0-0.6); ABS Lymphocytes 0.5 10^3/ul (1.0-4.8); ABS Monocytes 0.4 10^3/ul (0-0.8); ABS Neutrophils 6.2 10^3/ul (1.5-7.7); ABS Nucleated RBC 0 10^3/ul; Eosinophil % 0.6 % (0-6); Hematocrit 42 % (35-47); Hemoglobin 14.4 g/dl (12.0-16.0); Mean Corpuscular HGB Conc 34 g/dl (31-36); Mean Corpuscular Hemoglobin 32 pg (27-31); Mean Corpuscular Volume 94 fL (80-97); Mean Platelet Volume 7.3 um3 (7.4-10.4); Nucleated Red Blood Cells % 0; Platelet Count 152 10^3/ul (150-450); Red Blood Count 4.52 10^6/ul (4.00-5.40); Red Cell Distribution Width 13 % (10.5-15); White Blood Count 7.2 10^3/ul (3.5-10.8)
[2018-01-31 05:38] LABS: INR 3.42 (0.77-1.02)
[2018-01-31] MEDS: Acetaminophen TAB* 325 MG PO SCH ×3 (05:46→20:49)
[2018-01-31 05:48] LABS: EGFR Non-African American 139.9 (>60)
[2018-01-31] MEDS: Polyethylene Glycol 3350* 17 GM PACKET PO SCH (09:32)
[2018-01-31] MEDS: Metoprolol Succinate XL TAB* 25 MG PO SCH (09:32)
[2018-01-31] MEDS: Losartan TAB* 25 MG PO SCH (09:32)
[2018-01-31] MEDS: Cholecalciferol TAB* 400 UNIT PO SCH (09:32)
--- NOTE | 2018-01-31 14:21 | PN ---
Subjective Date of Service: 01/31/18 Interval History: Mrs. Segal reports feeling about the same today. She is a little vague, but has no new complaints. Still with chronic left knee pain, worse after PT earlier this morning. She is concerned about "money issues" if she ends up staying too long a rehab facility. Denies chest pain or SOB. Family History: Unchanged from Admission Social History: Unchanged from Admission Past Medical History: Unchanged from Admission Objective Active Medications: Acetaminophen (Tylenol Tab*) 975 mg PO Q8H [facility] Last Admin: 01/31/18 13:31 Dose: 975 mg Cholecalciferol (Vitamin D Tab*) 400 unit PO DAILY [facility] Last Admin: 01/31/18 09:32 Dose: 400 unit Docusate Sodium (Colace Cap*) 200 mg PO BEDTIME [facility] Last Admin: 01/30/18 21:42 Dose: 200 mg Lorazepam (Ativan Tab(*)) 0.25 mg PO Q4H PRN PRN Reason: ANXIETY Last Admin: 01/28/18 12:09 Dose: 0.25 mg Losartan Potassium (Cozaar Tab*) 25 mg PO DAILY [facility] Last Admin: 01/31/18 09:32 Dose: 25 mg Metoprolol Succinate (Toprol Xl Tab*) 25 mg PO DAILY [facility] Last Admin: 01/31/18 09:32 Dose: 25 mg Pharmacy Profile Note (Coumadin Daily Reminder*) 0 note FOLLOW UP 1700 [facility] Last Admin: 01/30/18 16:22 Dose: 1 note Polyethylene Glycol/Electrolytes (Miralax*) 17 gm PO DAILY [facility] Last Admin: 01/31/18 09:32 Dose: 17 gm Vital Signs - 8 hr 01/31/18 01/31/18 01/31/18 07:52 08:00 11:27 Temperature 97.6 F 98.2 F Pulse Rate 80 86 Respiratory 16 16 12 Rate Blood Pressure 148/72 172/80 (mmHg) O2 Sat by Pulse 97 99 Oximetry Oxygen Devices in Use Now: None Appearance: Frail elderly female, appears comfortable and in NAD. Eyes: No Scleral Icterus, PERRLA Ears/Nose/Mouth/Throat: Clear Oropharnyx, Mucous Membranes Moist Neck: NL Appearance and Movements; NL JVP, Trachea Midline Respiratory: Symmetrical Chest Expansion and Respiratory Effort, Clear to Auscultation Cardiovascular: NL Sounds; No Murmurs; No JVD, RRR Abdominal: NL Sounds; No Tenderness; No Distention Extremities: No Edema Skin: No Rash or Ulcers Neurological: Alert and Oriented x 3, NL Sensation, NL Muscle Strength and Tone Nutrition: Taking PO's Result Diagrams: 01/31/18 05:19 01/31/18 05:19 Additional Lab and Data: INR 3.4 Microbiology and Other Data: Microbiology 01/27/18 06:29 Urine Culture - Final Urine Diagnostic Imaging: . EKG Data: . Assess/Plan/Problems-Billing Assessment: 82 year old female with history of HTN, DVT on warfarin, compression fracture admitted with weakness and found to have hyponatremia 3 weeks after starting sertraline. - Patient Problems (1) Hyponatremia Current Visit: Yes Status: Acute Comment: - Resolving off sertraline - may be some component of "tea and toast" diet but she does say she cooks vegetables - may be contributing to her symptoms of malaise and weakness - which are improving - DC fluid restriction and IVF (2) Left knee pain Current Visit: Yes Status: Acute Comment: - Denies trauma stating this is arthritis and old injury - not uncommon for her to have discomfort however she will not bear weight on the extremity. - Xray obtained Monday showing no acute process but does have significant osteoarthritis - per radiologist if not improving recommends CT scan. - Pain is chronic, hopefully improves with PT over time - Appreciate PT eval - recommendation for subacute rehab, Plans for [facility] swing bed tomorrow. - Continue JAISON APAP started on 01/29 (3) Panic anxiety syndrome Current Visit: Yes Status: Acute Comment: she has little support (son does live close) and an SSRI was a good choice for her, as she describes panic attacks frequently. unfortunately it seems SSRIs are not a good fit for her given hyponatremia - she was started on low dose benzodiazepines this hospitalization ... there is concern given her age, but since she failed SSRI therapy, will continue low dose benzo & monitor - so far has tried one dose - she reported vivid dreams and is scared that she may hallucinate and hasnt tried it again. She reports her anxiety is controlled at this time - she will need f/u with PCP (4) Compression fracture of L4 lumbar vertebra Current Visit: No Status: Chronic Comment: - supportive care (5) Hx of deep venous thrombosis Current Visit: Yes Status: Chronic Comment: INR 3.4 - hold coumadin and repeat INR in am (6) DVT prophylaxis Current Visit: Yes Status: Acute Comment: - Coumadin on hold due to supratheraputic INR (7) DNR (do not resuscitate) Current Visit: Yes Status: Acute Status and Disposition: inpatient for hyponatremia and now generalized weakness requiring subacute rehab. Update son Lisandra today he agrees, plans for [facility] swing bed in AM.
[2018-01-31] MEDS: Docusate CAP* 100 MG PO SCH (20:49)
[2018-02-01] MEDS: Acetaminophen TAB* 325 MG PO SCH (05:21)
[2018-02-01 06:50] LABS: INR 2.08 (0.77-1.02)
[2018-02-01] MEDS: Polyethylene Glycol 3350* 17 GM PACKET PO SCH (09:29)
[2018-02-01] MEDS: Metoprolol Succinate XL TAB* 25 MG PO SCH (09:29)
[2018-02-01] MEDS: Losartan TAB* 25 MG PO SCH (09:29)
[2018-02-01] MEDS: Cholecalciferol TAB* 400 UNIT PO SCH (09:29)
--- NOTE | 2018-02-01 10:09 | DS ---
CC: Dr. Ferguson* DISCHARGE SUMMARY: DATE OF ADMISSION: 01/27/18 DATE OF DISCHARGE: 02/01/18 ADMITTING HOSPITALIST: Dr. Yanelis Mak. ATTENDING HOSPITALIST WHILE PATIENT IN THE HOSPITAL: Dr. Kylie King* ( dictated by HERLINDA Colby). PRIMARY CARE PROVIDER: Dr. Gan. CHIEF COMPLAINT: Weakness. ADMITTING DIAGNOSES: 1. Weakness. 2. Hypertension. 3. History of lower extremity deep vein thrombosis. 4. Chronic back pain with history of L4 compression fracture. 5. Chronic constipation. 6. Hyponatremia. DISCHARGE DIAGNOSES: 1. Weakness. 2. Hypertension. 3. History of lower extremity deep vein thrombosis. 4. Chronic back pain with history of L4 compression fracture. 5. Chronic constipation. 6. Hyponatremia. CONSULTATIONS: None. HISTORY OF PRESENT ILLNESS: Mrs. Segal is an 82-year-old female with past medical history significant for hypertension, chronic lower back pain with history of L4 compression fracture as well as history of lower extremity DVT for which she has been chronically on Coumadin, who presented to the emergency room with complaints of generalized weakness. The patient notes that she has been living alone and her son, Lisandra, has been taking care of her on and off, however, she noticed gradual declining in her physical and emotional status over the past few weeks. She notes that she has been under lot of stress since the beginning of the year and she can keep up on her home maintenance as well as multiple issues with home appliances that has been causing a great stress to her. She also has history of left knee osteoarthritis related to an old injury of the left knee at age 15 that has gotten progressively worse. She has increasing difficulty ambulating at home and she is fearful that she will fall and break her head. She also has longstanding history of anxiety and depression for which she was recently started on Zoloft. She took her Zoloft for about 3 days and noted in general not feeling well. She was evaluated in the emergency room and noted to have significant hyponatremia that was thought to be related to her SSRI intake. She also had laboratory workup and urinalysis that revealed essentially normal labs. Her EKG was done as well that showed normal sinus rhythm with no evidence of atrial fibrillation. She was also noted to have a slightly subtherapeutic INR of 1.99. Given her overall clinical picture, we were asked to see the patient for admission and to consider the likelihood of placement for short-term rehab. HOSPITAL COURSE: The patient was admitted under hospitalist services on . Physical therapy as well as occupational therapy evaluation and treatment started on the following morning. Patient had some difficulty ambulating due to her longstanding history of left knee osteoarthritis. She denied any complaints of chest pain or shortness of breath. Her appetite was improving slightly on a daily basis. She complains of chronic back pain, however, she tolerated it taking regular Tylenol as needed. Her hyponatremia was eventually resolved after discontinuation of her Zoloft. She was also noted to have elevated INR 2 days after admission with level of 3.2 and then up to 3.9, for which her Coumadin was on hold both nights. She continued to improve slowly on a daily basis and delinquency prevention social worker were consulted to consider possible placement for short-term rehab. I also had a long discussion with her son that his mother overall health condition has been deteriorating especially with decreased physical ability as well as increased emotional and anxiety concern. Patient eventually had an opening at [facility] for which she will be discharged today. Her INR was checked today and was recorded at 2.08 for which she will resume her regular Coumadin dose starting tonight and will obtain daily INR to adjust Coumadin dose per protocol. DISCHARGE MEDICATIONS: Include: 1. Vitamin D 400 units p.o. daily. 2. Colace 200 mg p.o. q.h.s. 3. Losartan 25 mg p.o. daily. 4. Metoprolol succinate 25 mg p.o. daily. 5. MiraLax 17 g p.o. daily. 6. Warfarin 5 mg p.o. q.h.s. 7. Tylenol 650 mg p.o. q.6 hours as needed for pain. PHYSICAL EXAMINATION: Her exam today was unremarkable. Her vitals were stable and she was afebrile. Her lungs were clear to auscultation bilaterally. Her heart was regular rate and rhythm without rubs, murmurs, or gallops. Her abdomen was soft, nontender, and nondistended. Her extremities were without edema. Her neurological exam was essentially normal. LABORATORY DATA: Her labs today with CBC showing white count of 7000, hemoglobin of 14.4, hematocrit of 42, and platelets of 152. Her chemistry panel with sodium of 133, potassium 3.8, chloride 101, CO2 of 26, BUN of 9 and creatinine of 0.43. DISPOSITION: Discharge to [facility] today and to follow up with primary care physician in the next 1 to 2 weeks. HERLINDA COLBY [id number]/[facility] #: [id number] [place]
[2018-02-01 11:59] VITALS: BP 152/74
== END 2018-02-01 15:05 | disposition swing bed (61) | DRG 641 ==
LOC: ED 04:39 → MEDTELE 09:43
PROVIDERS: ADMIT Internal Medicine; ATTEND Student in an Organized Health Care Education/Training Program
DX: E87.1 Hypo-osmolality and hyponatremia (principal); M48.56XA Collapsed vertebra, not elsewhere classified, lumbar region, initial encounter for fracture; I10 Essential (primary) hypertension; K57.90 Diverticulosis of intestine, part unspecified, without perforation or abscess without bleeding; M19.90 Unspecified osteoarthritis, unspecified site; K44.9 Diaphragmatic hernia without obstruction or gangrene; F41.0 Panic disorder [episodic paroxysmal anxiety]; G89.29 Other chronic pain; K59.09 Other constipation; M17.32 Unilateral post-traumatic osteoarthritis, left knee; F32.9 Major depressive disorder, single episode, unspecified; Z79.01 Long term (current) use of anticoagulants; Z86.718 Personal history of other venous thrombosis and embolism; Z66 Do not resuscitate; Z88.1 Allergy status to other antibiotic agents; Z88.0 Allergy status to penicillin; Z88.8 Allergy status to other drugs, medicaments and biological substances; Z91.018 Allergy to other foods; Z91.048 Other nonmedicinal substance allergy status; Z90.49 Acquired absence of other specified parts of digestive tract; Z98.49 Cataract extraction status, unspecified eye; Z82.49 Family history of ischemic heart disease and other diseases of the circulatory system; M41.9 Scoliosis, unspecified
CPT/HCPCS: 36415; 80048; 80053; 81003; 81015; 82570; 83930; 83935; 84300; 84443; 84484; 85025; 85610; 87086; 93005; 99284; A9270-GY; G8978-GP-CL; G8979-GP-CK

== ENCOUNTER 2021-05-15 18:13 | Observation (INO) ==
[2021-05-15 21:36] LABS: Rapid COVID-19 Molecular Undetected (Undetected)
[2021-05-15] MEDS ORDERED: Ondansetron 4 mg VIAL 2 MG/ML 2 ml VIAL IV PRN (21:42)
[2021-05-15] MEDS ORDERED: Ondansetron ODT 4 mg TAB 4 MG TAB SL PRN (21:46)
[2021-05-15] MEDS ORDERED: Warfarin per PHARMACY **NOTE FOLLOW UP SCH (22:00)
[2021-05-15 23:53] LABS: Hematocrit 43 % (35-47); Hemoglobin 14.3 g/dL (12.0-16.0); Mean Corpuscular HGB Conc 34 g/dL (31-36); Mean Corpuscular Hemoglobin 32 pg (27-31); Mean Corpuscular Volume 95 fL (80-97); Mean Platelet Volume 8.3 fL (7.4-10.4); Platelet Count 159 10^3/uL (150-450); Red Blood Count 4.48 10^6 /uL (3.70-4.87); Red Cell Distribution Width 14 % (10-15); White Blood Count 8.6 10^3/uL (3.5-10.8)
[2021-05-16 00:09] LABS: ALT 17 U/L (7-52); Albumin 3.9 g/dL (3.2-5.2); Albumin/Globulin Ratio 1.5 (1-3); Alkaline Phosphatase 68 U/L (35-149); Blood Urea Nitrogen 16 mg/dL (6-24); C Reactive Protein < 1.00 mg/L (<8.01); CO2 Carbon Dioxide 28 mmol/L (22-32); Calcium 9.3 mg/dL (8.6-10.3); Chloride 105 mmol/L (101-111); Globulin 2.6 g/dL (2-4); Glucose 105 mg/dL (70-100); Sodium 136 mmol/L (135-145); Total Protein 6.5 g/dL (6.4-8.9); eGFR CKD-EPI 89.7 (>60)
[2021-05-16 00:11] LABS: Anion Gap 3 mmol/L (2-11)
[2021-05-16 01:00] LABS: Urine Appearance Clear; Urine Bilirubin Negative (Negative); Urine Blood Negative (Negative); Urine Color Yellow; Urine Glucose Negative (Negative); Urine Ketones Trace (Negative); Urine Nitrite Negative (Negative); Urine Protein Negative (Negative); Urine Specific Gravity 1.011 (1.002-1.030); Urine Urobilinogen Negative (Negative)
[2021-05-16 01:08] LABS: Urine Bacteria Absent (Absent); Urine Red Blood Cell Trace(0-2/hpf) (Absent); Urine Squamous Epithelial Cell Present (Absent); Urine White Blood Cell 2+(11-20/hpf) (Absent)
[2021-05-16 01:30] LABS: Potassium Redraw 3.9 mmol/L (3.5-5.0)
[2021-05-16 05:38] LABS: INR 2.64 (0.86-1.15)
[2021-05-17 06:35] LABS: INR 3.19 (0.86-1.15)
[2021-05-17] MEDS ORDERED: Senna TAB 8.6 mg TAB PO PRN (09:26)
[2021-05-17] MEDS ORDERED: Magnesium Hydroxide LIQ 30 ML UDC PO PRN (09:26)
[2021-05-17] MEDS: Polyethylene Glycol 3350 17 GM PACKET PO SCH (09:49)
[2021-05-17] MEDS: Warfarin DAILY REMINDER **NOTE FOLLOW UP SCH (17:32)
[2021-05-18 07:11] LABS: INR 4.18 (0.86-1.15)
[2021-05-18] MEDS: Polyethylene Glycol 3350 17 GM PACKET PO SCH (08:51)
[2021-05-18] MEDS ORDERED: Warfarin - No Order Today **NOTE FOLLOW UP ONE (17:00)
[2021-05-18] MEDS: Warfarin DAILY REMINDER **NOTE FOLLOW UP SCH (17:45)
[2021-05-19 06:51] LABS: INR 3.13 (0.86-1.15)
[2021-05-19] MEDS: Polyethylene Glycol 3350 17 GM PACKET PO SCH (09:42)
[2021-05-19] MEDS ORDERED: NS 0.9% 500 ml BAG 500 ML IV ONE (11:51)
[2021-05-19] MEDS: Warfarin DAILY REMINDER **NOTE FOLLOW UP SCH (18:22)
[2021-05-20 05:57] LABS: INR 2.59 (0.86-1.15)
[2021-05-20] MEDS: Polyethylene Glycol 3350 17 GM PACKET PO SCH (07:51)
[2021-05-20 09:52] VITALS: BP 128/79
== END 2021-05-20 08:02 ==
LOC: EDHOLD 18:13 → ED 18:13 → SUATTDRO 21:42 → SSU 05-16 09:33
PROVIDERS: ADMIT Internal Medicine; ATTEND Internal Medicine

== ENCOUNTER 2021-05-20 07:27 | Inpatient (IN) ==
[2021-05-20] MEDS ORDERED: Senna TAB 8.6 mg TAB PO PRN (12:45)
[2021-05-20] MEDS ORDERED: Magnesium Hydroxide LIQ 30 ML UDC PO PRN (12:45)
[2021-05-20] MEDS: Warfarin DAILY REMINDER **NOTE FOLLOW UP SCH (17:22)
[2021-05-21 07:14] LABS: ABS Eosinophils 0.2 10^3/ul (0-0.6); ABS Lymphocytes 1.1 10^3/ul (1.0-4.8); ABS Monocytes 0.4 10^3/ul (0-0.8); ABS Neutrophils 3.6 10^3/ul (1.5-7.7); Eosinophil % 3.1 %; Hematocrit 36 % (35-47); Hemoglobin 12.1 g/dL (12.0-16.0); Lymphocyte % 21.1 %; Mean Corpuscular HGB Conc 34 g/dL (31-36); Mean Corpuscular Hemoglobin 33 pg (27-31); Mean Corpuscular Volume 96 fL (80-97); Mean Platelet Volume 8.6 fL (7.4-10.4); Platelet Count 155 10^3/uL (150-450); Red Blood Count 3.72 10^6 /uL (3.70-4.87); Red Cell Distribution Width 14 % (10-15); White Blood Count 5.4 10^3/uL (3.5-10.8)
[2021-05-21 07:22] LABS: INR 2.41 (0.86-1.15)
[2021-05-21 07:31] LABS: Albumin 3.2 g/dL (3.2-5.2); Albumin/Globulin Ratio 1.4 (1-3); Calcium 9.1 mg/dL (8.6-10.3); Globulin 2.3 g/dL (2-4); Total Protein 5.5 g/dL (6.4-8.9); eGFR CKD-EPI 90.2 (>60)
[2021-05-21] MEDS: Polyethylene Glycol 3350 17 GM PACKET PO SCH (10:12)
[2021-05-21] MEDS: Warfarin DAILY REMINDER **NOTE FOLLOW UP SCH (18:27)
[2021-05-22 07:17] LABS: INR 2.37 (0.86-1.15)
[2021-05-22 08:09] LABS: Albumin 3.3 g/dL (3.2-5.2); Albumin/Globulin Ratio 1.4 (1-3); Calcium 9.2 mg/dL (8.6-10.3); Globulin 2.4 g/dL (2-4); Total Protein 5.7 g/dL (6.4-8.9); eGFR CKD-EPI 89.7 (>60)
[2021-05-22] MEDS: Polyethylene Glycol 3350 17 GM PACKET PO SCH (10:45)
[2021-05-22] MEDS: Warfarin DAILY REMINDER **NOTE FOLLOW UP SCH (17:17)
[2021-05-23] MEDS: Polyethylene Glycol 3350 17 GM PACKET PO SCH (10:01)
[2021-05-23] MEDS: Warfarin DAILY REMINDER **NOTE FOLLOW UP SCH (16:54)
[2021-05-24 05:56] LABS: INR 2.22 (0.86-1.15)
[2021-05-24] MEDS: Polyethylene Glycol 3350 17 GM PACKET PO SCH ×2 (08:57→08:58)
[2021-05-24] MEDS: Warfarin DAILY REMINDER **NOTE FOLLOW UP SCH (16:42)
[2021-05-25] MEDS: Polyethylene Glycol 3350 17 GM PACKET PO SCH (09:13)
[2021-05-25] MEDS: Warfarin DAILY REMINDER **NOTE FOLLOW UP SCH (17:29)
[2021-05-26 06:01] LABS: INR 2.49 (0.86-1.15)
[2021-05-26 06:12] LABS: Albumin 3.4 g/dL (3.2-5.2); Albumin/Globulin Ratio 1.4 (1-3); Calcium 9.4 mg/dL (8.6-10.3); Globulin 2.4 g/dL (2-4); Total Bilirubin 0.9 mg/dL (0.2-1.0); Total Protein 5.8 g/dL (6.4-8.9); eGFR CKD-EPI 89.7 (>60)
[2021-05-26] MEDS: Polyethylene Glycol 3350 17 GM PACKET PO SCH (09:20)
[2021-05-26] MEDS: Warfarin DAILY REMINDER **NOTE FOLLOW UP SCH (16:44)
[2021-05-27] MEDS: Polyethylene Glycol 3350 17 GM PACKET PO SCH (09:08)
[2021-05-27] MEDS: Warfarin DAILY REMINDER **NOTE FOLLOW UP SCH (16:47)
[2021-05-28 06:23] LABS: ABS Basophils 0.1 10^3/ul (0-0.2); ABS Eosinophils 0.3 10^3/ul (0-0.6); ABS Monocytes 0.4 10^3/ul (0-0.8); ABS Neutrophils 4.2 10^3/ul (1.5-7.7); Eosinophil % 4.6 %; Hematocrit 38 % (35-47); Hemoglobin 12.7 g/dL (12.0-16.0); Lymphocyte % 16.1 %; Mean Corpuscular HGB Conc 34 g/dL (31-36); Mean Corpuscular Hemoglobin 32 pg (27-31); Mean Corpuscular Volume 96 fL (80-97); Mean Platelet Volume 8.5 fL (7.4-10.4); Platelet Count 230 10^3/uL (150-450); Red Blood Count 3.92 10^6 /uL (3.70-4.87); Red Cell Distribution Width 14 % (10-15)
[2021-05-28 06:30] LABS: INR 2.62 (0.86-1.15)
[2021-05-28 06:48] LABS: Albumin 3.4 g/dL (3.2-5.2); Albumin/Globulin Ratio 1.4 (1-3); Calcium 9.3 mg/dL (8.6-10.3); Globulin 2.4 g/dL (2-4); Potassium 4.1 mmol/L (3.5-5.0); Total Bilirubin 0.8 mg/dL (0.2-1.0); Total Protein 5.8 g/dL (6.4-8.9); eGFR CKD-EPI 90.2 (>60)
[2021-05-28] MEDS: Polyethylene Glycol 3350 17 GM PACKET PO SCH ×2 (10:06→20:16)
[2021-05-28] MEDS: Warfarin DAILY REMINDER **NOTE FOLLOW UP SCH (17:19)
[2021-05-29] MEDS: Polyethylene Glycol 3350 17 GM PACKET PO SCH (08:41)
[2021-05-29] MEDS: Warfarin DAILY REMINDER **NOTE FOLLOW UP SCH (17:53)
[2021-05-30] MEDS: Polyethylene Glycol 3350 17 GM PACKET PO SCH (08:08)
[2021-05-30] MEDS: Warfarin DAILY REMINDER **NOTE FOLLOW UP SCH (17:16)
[2021-05-31 07:59] LABS: INR 2.72 (0.86-1.15)
[2021-05-31] MEDS: Polyethylene Glycol 3350 17 GM PACKET PO SCH (08:14)
[2021-05-31] MEDS ORDERED: Enoxaparin 30 MG/0.3 ML SYR SUBCUT SCH (17:00)
[2021-06-01] MEDS ORDERED: Enoxaparin 30 MG/0.3 ML SYR SUBCUT SCH (09:00)
[2021-06-01] MEDS: Polyethylene Glycol 3350 17 GM PACKET PO SCH (09:15)
[2021-06-01 16:13] VITALS: BP 127/79
== END 2021-06-01 22:24 | disposition swing bed (61) | DRG 561 ==
LOC: PMRU 10:10
PROVIDERS: ADMIT Physical Medicine & Rehabilitation; ATTEND Physical Medicine & Rehabilitation

== ENCOUNTER 2021-06-01 20:58 | Inpatient (IN) ==
[2021-06-02] MEDS: Polyethylene Glycol 3350 17 GM PACKET PO SCH (08:27)
[2021-06-02] MEDS: Enoxaparin 30 MG/0.3 ML SYR SUBCUT SCH (08:28)
[2021-06-02] MEDS ORDERED: Enoxaparin 30 MG/0.3 ML SYR SUBCUT SCH (09:00)
[2021-06-03 05:42] LABS: ABS Basophils 0.1 10^3/ul (0-0.2); ABS Eosinophils 0.2 10^3/ul (0-0.6); ABS Lymphocytes 1.1 10^3/ul (1.0-4.8); ABS Monocytes 0.5 10^3/ul (0-0.8); ABS Neutrophils 4.1 10^3/ul (1.5-7.7); Eosinophil % 3.2 %; Hematocrit 39 % (35-47); Hemoglobin 13.1 g/dL (12.0-16.0); Lymphocyte % 18.9 %; Mean Corpuscular HGB Conc 34 g/dL (31-36); Mean Corpuscular Hemoglobin 33 pg (27-31); Mean Corpuscular Volume 97 fL (80-97); Mean Platelet Volume 9.1 fL (7.4-10.4); Platelet Count 204 10^3/uL (150-450); Red Blood Count 4.02 10^6 /uL (3.70-4.87); Red Cell Distribution Width 14 % (10-15)
[2021-06-03 05:49] LABS: INR 1.35 (0.86-1.15)
[2021-06-03 05:57] LABS: Albumin 3.6 g/dL (3.2-5.2); Albumin/Globulin Ratio 1.4 (1-3); Calcium 9.6 mg/dL (8.6-10.3); Globulin 2.6 g/dL (2-4); Potassium 4.2 mmol/L (3.5-5.0); Total Bilirubin 0.7 mg/dL (0.2-1.0); Total Protein 6.2 g/dL (6.4-8.9); eGFR CKD-EPI 88.5 (>60)
[2021-06-03] MEDS: Enoxaparin 30 MG/0.3 ML SYR SUBCUT SCH (09:35)
[2021-06-03] MEDS: Polyethylene Glycol 3350 17 GM PACKET PO SCH ×2 (09:35→09:37)
[2021-06-04] MEDS ORDERED: Buffered Lidocaine 1% SYRIN 1 ml INTRADERM ONE (06:00)
[2021-06-04] MEDS ORDERED: Lactated Ringers 1000 ml BAG 1,000 ML IV SCH (06:00)
[2021-06-04] MEDS: Polyethylene Glycol 3350 17 GM PACKET PO SCH (08:19)
[2021-06-04] MEDS ORDERED: fentaNYL 100 mcg/2 ml 50 MCG/ML VIAL ONE ×3 (11:41→16:12)
[2021-06-04] MEDS ORDERED: Rocuronium 50 mg VIAL 10 mg/ml 5 ml VIAL (50 mg) ONE ×2 (11:41→13:54)
[2021-06-04] MEDS ORDERED: Midazolam 2 mg/2 ml VIAL 1 mg/ml 2 ml VIAL (2 mg) ONE (11:41)
[2021-06-04] MEDS ORDERED: Lidocaine 2% PF 5 ML VIAL ONE (11:42)
[2021-06-04] MEDS ORDERED: Propofol 10 MG/ML 20 ML BTL ONE ×2 (11:42→13:32)
[2021-06-04] MEDS ORDERED: Phenylephrine IV 10 MG/ML 1 ml VIAL ONE (11:44)
[2021-06-04] MEDS ORDERED: Bupivacaine 0.5% SDV PF 30ML VIAL ONE (11:44)
[2021-06-04] MEDS ORDERED: Bupivacaine 0.25% SDV 30 ML ONE (12:17)
[2021-06-04] MEDS ORDERED: Clindamycin 900 MG/D5W BAG 900 MG/50 ML BAG IVPB ONE (12:23)
[2021-06-04] MEDS ORDERED: Ondansetron 4 mg VIAL 2 MG/ML 2 ml VIAL ONE (13:20)
[2021-06-04] MEDS ORDERED: Dexamethasone IV 4 MG/ML VIAL 1 ml VIAL ONE (13:20)
[2021-06-04] MEDS ORDERED: Phenylephrine 40 mcg/mL 10mL (400mcg) SYRINGE ONE (13:41)
[2021-06-04] MEDS: fentaNYL 100 mcg/2 ml 50 MCG/ML VIAL IV PRN ×6 (15:18→17:02)
[2021-06-04] MEDS ORDERED: Metoclopramide 5 MG/ML VIAL (10 mg) IV PRN (15:19)
[2021-06-04] MEDS ORDERED: HYDROcodone/ACETAMIN 5/325 mg TAB PO PRN (15:19)
[2021-06-04] MEDS ORDERED: Ondansetron 4 mg VIAL 2 MG/ML 2 ml VIAL IV PRN (15:19)
[2021-06-04] MEDS ORDERED: Naloxone 0.4 mg VIAL 0.4 mg/ml 1 ml VIAL IV PRN (15:19)
[2021-06-04] MEDS ORDERED: HYDROcodone/ACETAMIN 5/325 mg TAB ONE (15:39)
[2021-06-04] MEDS: Clindamycin 600 MG/D5W BAG IV SCH (20:24)
[2021-06-05] MEDS: Clindamycin 600 MG/D5W BAG IV SCH ×2 (05:26→13:00)
[2021-06-05 05:56] LABS: ABS Neutrophils 8.1 10^3/ul (1.5-7.7); Eosinophil % 0.1 %; Hematocrit 36 % (35-47); Hemoglobin 11.8 g/dL (12.0-16.0); Lymphocyte % 9.6 %; Mean Corpuscular HGB Conc 33 g/dL (31-36); Mean Corpuscular Hemoglobin 32 pg (27-31); Mean Corpuscular Volume 97 fL (80-97); Mean Platelet Volume 8.9 fL (7.4-10.4); Platelet Count 188 10^3/uL (150-450); Red Blood Count 3.66 10^6 /uL (3.70-4.87); Red Cell Distribution Width 14 % (10-15); White Blood Count 10.1 10^3/uL (3.5-10.8)
[2021-06-05 06:01] LABS: INR 1.18 (0.86-1.15)
[2021-06-05 06:13] LABS: Albumin 3.4 g/dL (3.2-5.2); Albumin/Globulin Ratio 1.4 (1-3); Calcium 9.2 mg/dL (8.6-10.3); Globulin 2.4 g/dL (2-4); Potassium 4.4 mmol/L (3.5-5.0); Total Bilirubin 0.7 mg/dL (0.2-1.0); Total Protein 5.8 g/dL (6.4-8.9); eGFR CKD-EPI 86.3 (>60)
[2021-06-05] MEDS: Polyethylene Glycol 3350 17 GM PACKET PO SCH (08:31)
[2021-06-05] MEDS ORDERED: Enoxaparin 60 MG/0.6 ML SYR SUBCUT SCH (09:00)
[2021-06-05 12:19] VITALS: BP 126/67
[2021-06-05] MEDS ORDERED: Warfarin DAILY REMINDER **NOTE FOLLOW UP SCH (17:00)
[2021-06-05] MEDS ORDERED: Warfarin per PHARMACY **NOTE FOLLOW UP SCH (17:00)
== END 2021-06-05 15:09 | disposition swing bed (61) | DRG 517 ==
LOC: PMRU 22:24 → SUATTDRO 23:13 → MED 06-02 16:38 → SSU 06-04 17:20
PROVIDERS: ADMIT Physical Medicine & Rehabilitation; ATTEND Internal Medicine

== ENCOUNTER 2021-06-05 14:19 | Inpatient (IN) ==
[2021-06-05] MEDS ORDERED: WARFARIN PER PHARMACY FOLLOW UP SCH (17:00)
[2021-06-05] MEDS: Warfarin DAILY REMINDER **NOTE FOLLOW UP SCH (17:39)
[2021-06-05] MEDS: Warfarin per PHARMACY **NOTE FOLLOW UP SCH (17:39)
[2021-06-05] MEDS: Enoxaparin 60 MG/0.6 ML SYR SUBCUT SCH (20:31)
[2021-06-06 06:31] LABS: INR 1.8 (0.86-1.15)
[2021-06-06] MEDS: Polyethylene Glycol 3350 17 GM PACKET PO SCH (08:36)
[2021-06-06] MEDS: Cholecalciferol (VIT D3) 400 units TAB PO SCH (08:37)
[2021-06-06] MEDS: Enoxaparin 60 MG/0.6 ML SYR SUBCUT SCH ×2 (08:38→20:49)
[2021-06-06] MEDS: Warfarin DAILY REMINDER **NOTE FOLLOW UP SCH (16:59)
[2021-06-06] MEDS: Warfarin per PHARMACY **NOTE FOLLOW UP SCH (16:59)
[2021-06-07 06:59] LABS: INR 2.61 (0.86-1.15)
[2021-06-07] MEDS: Cholecalciferol (VIT D3) 400 units TAB PO SCH (09:30)
[2021-06-07] MEDS: Polyethylene Glycol 3350 17 GM PACKET PO SCH (09:30)
[2021-06-07] MEDS: Enoxaparin 60 MG/0.6 ML SYR SUBCUT SCH (09:30)
[2021-06-07] MEDS: Warfarin DAILY REMINDER **NOTE FOLLOW UP SCH (16:56)
[2021-06-07] MEDS: Warfarin per PHARMACY **NOTE FOLLOW UP SCH (16:56)
[2021-06-07] MEDS: Al Hydrox/Mg Hydrox/Simet LIQ 30 ML UDC PO PRN (20:16)
[2021-06-08 06:35] LABS: INR 4.26 (0.86-1.15)
[2021-06-08] MEDS: Polyethylene Glycol 3350 17 GM PACKET PO SCH (08:08)
[2021-06-08] MEDS ORDERED: Warfarin - No Order Today **NOTE FOLLOW UP SCH (09:00)
[2021-06-08] MEDS: Cholecalciferol (VIT D3) 400 units TAB PO SCH (11:12)
[2021-06-08 11:35] LABS: Rapid COVID-19 Molecular Undetected (Undetected)
[2021-06-08 15:41] LABS: Hematocrit 38 % (35-47); Hemoglobin 12.4 g/dL (12.0-16.0); Mean Corpuscular HGB Conc 33 g/dL (31-36); Mean Corpuscular Hemoglobin 32 pg (27-31); Mean Corpuscular Volume 97 fL (80-97); Mean Platelet Volume 9.2 fL (7.4-10.4); Platelet Count 214 10^3/uL (150-450); Red Blood Count 3.87 10^6 /uL (3.70-4.87); Red Cell Distribution Width 14 % (10-15); White Blood Count 10.4 10^3/uL (3.5-10.8)
[2021-06-08 16:18] LABS: ABS Eosinophils 0.2 10^3/ul (0-0.6); ABS Lymphocytes 0.5 10^3/ul (1.0-4.8); ABS Monocytes 0.4 10^3/ul (0-0.8); ABS Neutrophils 9.3 10^3/ul (1.5-7.7); Eosinophil % 1.6 %; Lymphocyte % 4.7 %
[2021-06-08] MEDS: Warfarin per PHARMACY **NOTE FOLLOW UP SCH (19:00)
[2021-06-08] MEDS: Warfarin DAILY REMINDER **NOTE FOLLOW UP SCH (19:00)
[2021-06-08] MEDS: Al Hydrox/Mg Hydrox/Simet LIQ 30 ML UDC PO PRN (21:26)
[2021-06-09 05:56] LABS: INR 4.01 (0.86-1.15)
[2021-06-09 08:51] VITALS: BP 135/83
[2021-06-09] MEDS ORDERED: Loperamide LIQ 2 MG/15 ML UDC PO ONE (10:00)
[2021-06-09] MEDS: Cholecalciferol (VIT D3) 400 units TAB PO SCH (10:27)
[2021-06-09] MEDS: Polyethylene Glycol 3350 17 GM PACKET PO SCH (10:29)
[2021-06-09] MEDS ORDERED: Warfarin - No Order Today **NOTE FOLLOW UP ONE (13:00)
== END 2021-06-09 13:20 | DRG 561 ==
LOC: SSU 16:30 → SUATTDRO 16:30
PROVIDERS: ADMIT Internal Medicine; ATTEND Internal Medicine